=== PATIENT | female | born 1980 | race Caucasian/White ===

== ENCOUNTER 2019-08-01 15:58 | Emergency (ER) | payer OTHER ==
[~2019-08-01] VITALS: Ht 175.3 cm; Wt 90.7 kg
[~2019-08-01 15:58] MED LIST: ESCI20 PO; LEVSOD125 PO; OXYC15ER PO
[2019-08-01] MEDS ORDERED: NARCAN4 MG (16:12)
== END 2019-08-01 18:06 | disposition home or self-care (01) ==
LOC: ER 15:58
DX: T40.1X1A Poisoning by heroin, accidental (unintentional), initial encounter (principal); Z88.1 Allergy status to other antibiotic agents; Z79.899 Other long term (current) drug therapy; F17.200 Nicotine dependence, unspecified, uncomplicated
CPT/HCPCS: 99284

== ENCOUNTER 2019-12-20 06:32 | Emergency (ER) | payer OTHER ==
[~2019-12-20] VITALS: Ht 175.3 cm; Wt 97.5 kg
[~2019-12-20 06:32] MED LIST changes: +Bactrim Ds Tab1 EACH PO; +NALOXONE HC1 MG/1 ML IM; +NARCAN4 MG
[2019-12-20 06:53] LABS: Source, Urine Clean Catch
[2019-12-20 06:56] LABS: Bilirubin, Urine Neg (Neg); Blood, Urine 5+ (Neg); Glucose Qualitative, Urine Neg (Neg); Ketones, Urine Neg (Neg); Leukocyte Esterase, Urine 3+ (Neg); Nitrite, Urine Neg (Neg); Protein, Urine 2+ (Neg); Urobilinogen, Urine NORM (Normal)
[2019-12-20 07:03] LABS: Appearance, Urine Hazy (Clear); Color, Urine Yellow (P-Yellow)
[2019-12-20 07:05] LABS: White Blood Cells, Urine TNTC /hpf (0-5)
[2019-12-20 07:06] LABS: Bacteria Many /hpf; Squamous Epithelial Cells Few /hpf (Few); Transitional Epithelial Cells Few /hpf (0-Rare)
[2019-12-20] MEDS ORDERED: Pyridium200 MG PO (07:18)
[2019-12-20] MEDS ORDERED: CEFD300 PO (07:18)
[2019-12-20] MEDS ORDERED: ONDA4ODT SL (07:18)
== END 2019-12-20 08:02 | disposition home or self-care (01) ==
LOC: ER 06:32
PROVIDERS: Emergency Medicine
DX: N39.0 Urinary tract infection, site not specified (principal); R31.9 Hematuria, unspecified; F17.210 Nicotine dependence, cigarettes, uncomplicated; Z88.1 Allergy status to other antibiotic agents
CPT/HCPCS: 81001; 81025; 87077; 87086; 87186; 99283

== ENCOUNTER 2020-05-11 20:09 | Emergency (ER) | payer OTHER ==
[~2020-05-11] VITALS: Ht 177.8 cm; Wt 95.2 kg
[~2020-05-11 20:09] MED LIST changes: +CEFD300 PO; +ONDA4ODT SL; +Pyridium200 MG PO
[2020-05-11 20:49] LABS: BASOPHILS ABSOLUTE AUTO 0.05 K/mm3 (0.00-0.23); BASOPHILS PERCENT AUTO 1 % (0-2); EOSINOPHILS ABSOLUTE AUTO 0.13 K/mm3 (0.00-0.68); EOSINOPHILS PERCENT AUTO 1 % (0-6); Hematocrit 38.2 % (33.0-51.0); Hemoglobin 12.6 g/dL (11.5-16.0); IMMATURE GRAN ABSOLUTE AUTO 0.02 K/mm3 (0.00-0.10); IMMATURE GRAN PERCENT AUTO 0 % (0-1); LYMPHOCYTES PERCENT AUTO 31 % (21-46); MONOCYTES ABSOLUTE AUTO 0.72 K/mm3 (0.16-1.47); MONOCYTES PERCENT AUTO 8 % (4-13); Mean Corpuscular Volume 88 fL (80-100); Mean Platelet Volume 10.2 fL (9.1-12.4); NEUTROPHILS ABSOLUTE AUTO 5.61 K/mm3 (1.96-9.15); NEUTROPHILS PERCENT AUTO 60 % (41-73); Platelet Count 277 K/mm3 (150-400); RDW Coefficient Variation 13.1 % (11.7-14.2); Red Blood Cell Count 4.35 M/mm3 (3.80-5.20); White Blood Cell Count 9.43 K/mm3 (4.00-11.30)
[2020-05-11 21:34] LABS: Alanine Aminotransfer (ALT/SGP 109 U/L (12-78); Alk Phos 70 U/L (50-136); Anion Gap 8 mmol/L (6-16); Aspartate Aminotrans (AST/SGOT 55 U/L (12-37); Bilirubin, Total 0.5 mg/dL (0.1-1.0); Blood Urea Nitrogen 11 mg/dL (8-24); Bun/Creatinine Ratio 16.2 (12.0-20.0); CO2, Blood 26 mmol/L (21-32); Calcium, Blood 9.7 mg/dL (8.5-10.1); Chloride, Blood 106 mmol/L (98-108); Creatinine, Blood 0.68 mg/dL (0.40-1.00); Glomerular Filtration Rate >60 (60-); Glucose, Blood 104 mg/dL (70-99); Sodium, Blood 140 mmol/L (136-145)
[2020-05-11] MEDS ORDERED: HYDR1TAB94 PO (22:17)
== END 2020-05-11 22:54 | disposition home or self-care (01) ==
LOC: ER 20:09
PROVIDERS: Physician Assistant
DX: S00.03XA Contusion of scalp, initial encounter (principal); S50.01XA Contusion of right elbow, initial encounter; F17.290 Nicotine dependence, other tobacco product, uncomplicated; Z88.1 Allergy status to other antibiotic agents; Z79.899 Other long term (current) drug therapy; W13.2XXA Fall from, out of or through roof, initial encounter; Y92.009 Unspecified place in unspecified non-institutional (private) residence as the place of occurrence of the external cause
CPT/HCPCS: 36415; 70450; 72125; 73080; 80053; 85025; 96374; 96375; 99284-25; A9270-GY; J2270; J2405

== ENCOUNTER 2021-02-18 17:32 | Emergency (ER) | payer OTHER ==
[~2021-02-18] VITALS: Ht 177.8 cm; Wt 90.7 kg
[~2021-02-18 17:32] MED LIST changes: +HYDR1TAB94 PO
== END 2021-02-18 20:15 | disposition home or self-care (01) ==
LOC: ER 17:32
DX: T40.1X1A Poisoning by heroin, accidental (unintentional), initial encounter (principal); R40.4 Transient alteration of awareness; F17.210 Nicotine dependence, cigarettes, uncomplicated; Z88.1 Allergy status to other antibiotic agents
CPT/HCPCS: 99285

== ENCOUNTER 2021-05-13 18:34 | Emergency (ER) | payer OTHER ==
[~2021-05-13] VITALS: Ht 175.3 cm; Wt 90.7 kg
[2021-05-13] MEDS ORDERED: CEPH500 PO (21:19)
== END 2021-05-13 21:31 | disposition home or self-care (01) ==
LOC: ER 18:34
DX: L02.413 Cutaneous abscess of right upper limb (principal); L03.113 Cellulitis of right upper limb; F17.210 Nicotine dependence, cigarettes, uncomplicated
CPT/HCPCS: 10061; 96365; 96375; 99282-25; A9270

== ENCOUNTER → 2022-07-21 | Outpatient (CLI) | payer OTHER ==
[~2022-07-21] MED LIST changes: +CEPH500 PO
== END | disposition home or self-care (01) ==
LOC: LAB SHORT 18:05 → LAB 18:05
DX: N39.0 Urinary tract infection, site not specified (principal)
CPT/HCPCS: 87077; 87086; 87186

== ENCOUNTER → 2022-11-18 | Outpatient (CLI) | payer OTHER ==
[2022-11-18 16:06] LABS: Source, Urine Clean Catch
[2022-11-18 19:08] LABS: Amorphous Heavy (0-Heavy); Bacteria Many /hpf; Mucus Light (0-Heavy); Squamous Epithelial Cells Mod /hpf (Few)
== END | disposition home or self-care (01) ==
LOC: LAB SHORT 16:03
PROVIDERS: Advanced Practice Midwife
DX: O09.892 Supervision of other high risk pregnancies, second trimester (principal)
CPT/HCPCS: 81015

== ENCOUNTER → 2023-01-23 | Outpatient (CLI) | payer OTHER ==
[~2023-01-23] MED LIST changes: +BUPRENORPHINE HC2 MG PO; +PRENATAL TABLE1 EAC2 PO
[2023-01-23 16:55] LABS: Source, Urine Voided
[2023-01-23 18:02] LABS: BASOPHILS ABSOLUTE AUTO 0.05 K/mm3 (0.00-0.23); BASOPHILS PERCENT AUTO 1 % (0-2); EOSINOPHILS ABSOLUTE AUTO 0.11 K/mm3 (0.00-0.68); EOSINOPHILS PERCENT AUTO 1 % (0-6); Hemoglobin 11.9 g/dL (11.5-16.0); IMMATURE GRAN ABSOLUTE AUTO 0.02 K/mm3 (0.00-0.10); IMMATURE GRAN PERCENT AUTO 0 % (0-1); LYMPHOCYTES ABSOLUTE AUTO 1.99 K/mm3 (0.84-5.20); LYMPHOCYTES PERCENT AUTO 24 % (21-46); MONOCYTES ABSOLUTE AUTO 0.74 K/mm3 (0.16-1.47); MONOCYTES PERCENT AUTO 9 % (4-13); Mean Corpuscular HGB 28.9 pg (26.0-34.0); Mean Corpuscular HGB Conc 33.1 g/dL (31.5-36.5); Mean Corpuscular Volume 87 fL (80-100); NEUTROPHILS ABSOLUTE AUTO 5.55 K/mm3 (1.96-9.15); NEUTROPHILS PERCENT AUTO 66 % (41-73); Platelet Count 191 K/mm3 (150-400); RDW Coefficient Variation 13.2 % (11.7-14.2); RDW Standard Deviation 41.3 fL (35.1-46.3); Red Blood Cell Count 4.12 M/mm3 (3.80-5.20); White Blood Cell Count 8.46 K/mm3 (4.00-11.30)
[2023-01-23 18:03] LABS: Mean Platelet Volume 13.6 fL (9.1-12.4)
[2023-01-23 18:48] LABS: Bacteria Few /hpf; Red Blood Cells, Urine 0-2 /hpf (0-2); Squamous Epithelial Cells Few /hpf (Few); White Blood Cells, Urine 0-2 /hpf (0-5)
[2023-01-23 18:49] LABS: Amorphous Light (0-Heavy)
[2023-01-24 10:22] LABS: G. vaginalis (DNA Probe) Positive (NEGATIVE); T. vaginalis (DNA Probe) Negative (NEGATIVE)
[2023-01-24 10:23] LABS: Candida species (DNA Probe) Negative (NEGATIVE)
[2023-01-25 01:07] LABS: CHLAMYDIA TRACHOMATIS, NAA Negative (Negative)
[2023-01-25 07:08] LABS: HBSAG SCREEN Negative (Negative); HCV ANTIBODY Reactive (Non Reactive); HIV AB/P24 AG SCREEN Non Reactive (Non Reactive)
[2023-01-25 09:08] LABS: HEPATITIS C QUANTITATION HCV Not Detected IU/mL (.)
[2023-01-26 15:09] LABS: HPV 16 Negative (Negative); HPV 18 Negative (Negative); HPV OTHER HR TYPES Negative (Negative)
== END ==
LOC: LAB 15:34 → LAB SHORT 15:34
PROVIDERS: Obstetrics & Gynecology
DX: Z01.419 Encounter for gynecological examination (general) (routine) without abnormal findings (principal); Z11.3 Encounter for screening for infections with a predominantly sexual mode of transmission; O09.893 Supervision of other high risk pregnancies, third trimester; N89.8 Other specified noninflammatory disorders of vagina; Z3A.00 Weeks of gestation of pregnancy not specified
CPT/HCPCS: 81015; 84443; 85025; 86592; 86762; 86803; 86850; 86900; 86901; 87081; 87086; 87150; 87340; 87389; 87480; 87491; 87510; 87522; 87591; 87624; 87660; G0145

== ENCOUNTER 2023-02-04 14:11 | Inpatient (IN) | payer OTHER ==
[2023-02-04] VITALS (18 sets, daily range): BP systolic 127–181; BP diastolic 61–108
[~2023-02-04] VITALS: Ht 175.3 cm; Wt 100.0 kg
[~2023-02-04 14:11] MED LIST changes: -BUPRENORPHINE HC2 MG PO; -PRENATAL TABLE1 EAC2 PO
[2023-02-04] MEDS ORDERED: BUPRENORPHINE HC2 MG PO (14:50)
[2023-02-04] MEDS ORDERED: PRENATAL TABLE1 EAC2 PO (14:51)
[2023-02-04 15:11] LABS: BASOPHILS ABSOLUTE AUTO 0.03 K/mm3 (0.00-0.23); BASOPHILS PERCENT AUTO 1 % (0-2); EOSINOPHILS ABSOLUTE AUTO 0.09 K/mm3 (0.00-0.68); EOSINOPHILS PERCENT AUTO 1 % (0-6); Hematocrit 31.4 % (33.0-51.0); Hemoglobin 10.6 g/dL (11.5-16.0); IMMATURE GRAN ABSOLUTE AUTO 0.01 K/mm3 (0.00-0.10); IMMATURE GRAN PERCENT AUTO 0 % (0-1); LYMPHOCYTES ABSOLUTE AUTO 1.71 K/mm3 (0.84-5.20); LYMPHOCYTES PERCENT AUTO 27 % (21-46); MONOCYTES PERCENT AUTO 8 % (4-13); Mean Corpuscular HGB 28.7 pg (26.0-34.0); Mean Corpuscular HGB Conc 33.8 g/dL (31.5-36.5); Mean Corpuscular Volume 85 fL (80-100); Mean Platelet Volume 12.8 fL (9.1-12.4); NEUTROPHILS ABSOLUTE AUTO 4.01 K/mm3 (1.96-9.15); NEUTROPHILS PERCENT AUTO 63 % (41-73); Platelet Count 161 K/mm3 (150-400); RDW Coefficient Variation 13.5 % (11.7-14.2); RDW Standard Deviation 41.2 fL (35.1-46.3); Red Blood Cell Count 3.69 M/mm3 (3.80-5.20); White Blood Cell Count 6.35 K/mm3 (4.00-11.30)
[2023-02-04 16:02] LABS: Albumin, Blood 2.5 g/dL (3.4-5.0); Albumin/Globulin Ratio 0.6 (0.8-1.8); Bilirubin, Total 0.1 mg/dL (0.1-1.0); Bun/Creatinine Ratio 17.4 (12.0-20.0); Calcium, Blood 9.3 mg/dL (8.5-10.1); Creatinine, Blood 0.69 mg/dL (0.40-1.00); Globulin, Blood 4.3 g/dL (2.2-4.0); Potassium, Blood 3.7 mmol/L (3.5-5.5); Total Protein, Blood 6.8 g/dL (6.4-8.2)
--- NOTE | 2023-02-04 17:25 | NUR ---
URINE TOXICOLOGY SPECIMENS COLLECTED AND WALKED UP TO LAB. AWAITING RESULTS.
[2023-02-04 18:50] LABS: U Amphetamine Screen Not Detected; U Barbituate Screen Not Detected; U Benzodiazapine Screen Not Detected; U Buprenorphine Screen Not Detected; U Cannabinoids Screen Not Detected; U Cocaine Screen Not Detected; U Methadone Screen Not Detected; U Methamphetamine Screen DETECTED; U Opiates Screen Not Detected; U Oxycodone Screen Not Detected; U Phencyclidine Screen Not Detected; U Propoxyphene Screen Not Detected
[2023-02-04 18:54] LABS: Creatinine, Urine Random 59.9 mg/dL (27.00-270.00); Protein, Urine Random 22.6 mg/dL (0.0-11.9); Protein/Creat Ratio, Ur Random 0.4
--- NOTE | 2023-02-04 19:59 | NUR ---
Proovided & Nurse in room. No needs at this time.
[2023-02-04 21:27] LABS: Creatinine, Blood 0.7 mg/dL (0.40-1.00); International Normalized Ratio 0.87; Prothrombin Time Results 9.2 Sec (9.7-11.5)
[2023-02-05] VITALS (58 sets, daily range): BP systolic 112–229; BP diastolic 62–121
[2023-02-05 09:32] LABS: BASOPHILS ABSOLUTE AUTO 0.05 K/mm3 (0.00-0.23); BASOPHILS PERCENT AUTO 1 % (0-2); EOSINOPHILS ABSOLUTE AUTO 0.08 K/mm3 (0.00-0.68); EOSINOPHILS PERCENT AUTO 1 % (0-6); Hematocrit 35.8 % (33.0-51.0); Hemoglobin 11.9 g/dL (11.5-16.0); IMMATURE GRAN ABSOLUTE AUTO 0.04 K/mm3 (0.00-0.10); IMMATURE GRAN PERCENT AUTO 0 % (0-1); LYMPHOCYTES ABSOLUTE AUTO 1.61 K/mm3 (0.84-5.20); LYMPHOCYTES PERCENT AUTO 17 % (21-46); MONOCYTES ABSOLUTE AUTO 0.62 K/mm3 (0.16-1.47); MONOCYTES PERCENT AUTO 7 % (4-13); Mean Corpuscular HGB 28.5 pg (26.0-34.0); Mean Corpuscular HGB Conc 33.2 g/dL (31.5-36.5); Mean Corpuscular Volume 86 fL (80-100); Mean Platelet Volume 12.7 fL (9.1-12.4); NEUTROPHILS PERCENT AUTO 75 % (41-73); Platelet Count 177 K/mm3 (150-400); RDW Coefficient Variation 14.1 % (11.7-14.2); RDW Standard Deviation 42.8 fL (35.1-46.3); Red Blood Cell Count 4.17 M/mm3 (3.80-5.20)
[2023-02-05 10:08] LABS: Albumin, Blood 2.6 g/dL (3.4-5.0); Albumin/Globulin Ratio 0.6 (0.8-1.8); Bilirubin, Total 0.2 mg/dL (0.1-1.0); Bun/Creatinine Ratio 8.8 (12.0-20.0); Calcium, Blood 7.9 mg/dL (8.5-10.1); Creatinine, Blood 0.8 mg/dL (0.40-1.00); Globulin, Blood 4.5 g/dL (2.2-4.0); Potassium, Blood 3.9 mmol/L (3.5-5.5); Total Protein, Blood 7.1 g/dL (6.4-8.2)
--- NOTE | 2023-02-05 11:40 | NUR ---
02/05/23 1140 Adrianna Carreno 1130 DELIVERY VIABLE MALE WEIGHT 2825GM, 6# 4 OZ, LENGTH 18 INCHES, HEAD 14 INCHES, CHEST 14 INCHES, UMBICAL CORD SEGMENT COLLECTED FOR DRUG SCREEN, UMBILICAL CORD BLOOD COLLECTED GIVEN TO GISELLE RN
--- NOTE | 2023-02-05 13:03 | NUR ---
DR. KHALIL AT BEDSIDE TO UPDATE PT, THEN OUT OF ROOM
--- NOTE | 2023-02-05 19:04 | NUR ---
REPT TO Jameson ORTEGA RN
--- NOTE | 2023-02-05 20:45 | NUR ---
DR GANDHI NOTIFIED OF 2 SEVERE RANGE BPS AND CURRENT PULSE AFTER ADMINISTERING 60 MG XL NIFEDIPINE AT 2009, NEW ORDERS FOR 40 MG IV LABETALOL NOW. NO NEW ORDERS FOR ANY ORAL BP MEDS AT THIS TIME.
[2023-02-06] VITALS (25 sets, daily range): BP systolic 115–181; BP diastolic 56–83
[2023-02-06 06:34] LABS: Albumin, Blood 2.2 g/dL (3.4-5.0); Albumin/Globulin Ratio 0.5 (0.8-1.8); Bilirubin, Total 0.2 mg/dL (0.1-1.0); Bun/Creatinine Ratio 13.3 (12.0-20.0); Calcium, Blood 7.9 mg/dL (8.5-10.1); Creatinine, Blood 0.75 mg/dL (0.40-1.00); Globulin, Blood 4.3 g/dL (2.2-4.0); Potassium, Blood 5.7 mmol/L (3.5-5.5); Total Protein, Blood 6.5 g/dL (6.4-8.2)
[2023-02-06 06:49] LABS: BASOPHILS ABSOLUTE AUTO 0.02 K/mm3 (0.00-0.23); BASOPHILS PERCENT AUTO 0 % (0-2); EOSINOPHILS ABSOLUTE AUTO 0.01 K/mm3 (0.00-0.68); EOSINOPHILS PERCENT AUTO 0 % (0-6); Hematocrit 32.6 % (33.0-51.0); Hemoglobin 11.1 g/dL (11.5-16.0); IMMATURE GRAN ABSOLUTE AUTO 0.07 K/mm3 (0.00-0.10); IMMATURE GRAN PERCENT AUTO 0 % (0-1); LYMPHOCYTES ABSOLUTE AUTO 2.07 K/mm3 (0.84-5.20); LYMPHOCYTES PERCENT AUTO 13 % (21-46); MONOCYTES ABSOLUTE AUTO 0.92 K/mm3 (0.16-1.47); MONOCYTES PERCENT AUTO 6 % (4-13); Mean Corpuscular HGB 29.1 pg (26.0-34.0); Mean Corpuscular Volume 86 fL (80-100); NEUTROPHILS PERCENT AUTO 80 % (41-73); Platelet Count 128 K/mm3 (150-400); RDW Coefficient Variation 14.3 % (11.7-14.2); RDW Standard Deviation 43.3 fL (35.1-46.3); Red Blood Cell Count 3.81 M/mm3 (3.80-5.20); White Blood Cell Count 15.69 K/mm3 (4.00-11.30)
[2023-02-06 06:57] LABS: Mean Platelet Volume 13.4 fL (9.1-12.4)
--- NOTE | 2023-02-06 09:30 | NUR ---
CPS NOTE ARIS CEBALLOS AND FORREST GARCIA HERE FOR INITIAL CONTACT INTERVIEW. BRIEFLY SPOKE WITH PT AND SO. RECEIVED REPORT FROM NURSERY RN AND PERMIT COORDINATOR REGARDING NB PLAN OF CARE. WILL RETURN THURSDAY AM WITH PLAN FOR DISCHARGE. FBP STAFF TO NOTIFY CPS ALLIGATOR SHEAR OPERATOR STAFF OVER WEEKEND WITH NEEDS OR IF PLAN FOR DISCHARGE FOR PT OR NB CHANGES.
--- NOTE | 2023-02-06 12:59 | NUR ---
IV saline locked, walker catheter d/c'd. Pt educated not to get up to BR w/o assistance and to call when she feels she is ready to get up to shower and void.
[2023-02-07] VITALS (7 sets, daily range): BP systolic 125–137; BP diastolic 60–74
[2023-02-08 03:04] VITALS: BP 129/69
[2023-02-08 08:01] VITALS: BP 136/85
[2023-02-08] MEDS ORDERED: LABE200 PO (10:32)
[2023-02-08] MEDS ORDERED: MIRALAX17 GM PO (10:32)
[2023-02-08] MEDS ORDERED: IBUP800 PO (10:33)
[2023-02-08] MEDS ORDERED: NIFE60ER PO (10:33)
[2023-02-08] MEDS ORDERED: MASOPHEN500 M3 PO (10:33)
[2023-02-08] MEDS ORDERED: OXAYDO5 M1 PO (10:34)
[2023-02-08 10:55] VITALS: BP 135/79
--- NOTE | 2023-02-08 12:03 | NUR ---
patient and significant other given written and verbal dc instructions at length. Lupe states she has a pp appointment with Dr Flores on Thursday. She was also scheduled for a ppfu here at [facility] on thursday at 10 am. pt going home on labetalol 200 mg tid and 60 mg xl nifedipine bid. stressed importance of taking these medications and staying compliant and pih symptoms or eclampsia warnings and when to go to ER if needed. pt verbalizes understanding. scripts are currently being filled and Jose mother went to go pick them up for her. she will dc to boarder status when her meds are back. powerglids removed x 2, catheteers intact and pressure applied. c section instructions reviewed and recovery discussed. all questions answered and patient receptive.
== END 2023-02-08 14:30 | disposition home or self-care (01) | DRG 784 ==
LOC: OBS 14:11 → BC 14:21 → OBS 14:23 → BC 14:24
PROVIDERS: Obstetrics & Gynecology; ADMIT Obstetrics & Gynecology
PROC: 10D00Z1 Extraction of Products of Conception, Low, Open Approach (ICD-10-PCS; principal; 2023-02-05 10:30)
PROC: 0UB70ZZ Excision of Bilateral Fallopian Tubes, Open Approach (ICD-10-PCS; 2023-02-05 10:30)
DX: O11.4 Pre-existing hypertension with pre-eclampsia, complicating childbirth (principal); O98.32 Other infections with a predominantly sexual mode of transmission complicating childbirth; O98.42 Viral hepatitis complicating childbirth; O99.324 Drug use complicating childbirth; O99.214 Obesity complicating childbirth; Z3A.37 37 weeks gestation of pregnancy; Z37.0 Single live birth; O99.810 Abnormal glucose complicating pregnancy; F15.10 Other stimulant abuse, uncomplicated; B19.20 Unspecified viral hepatitis C without hepatic coma; A60.04 Herpesviral vulvovaginitis; O99.284 Endocrine, nutritional and metabolic diseases complicating childbirth; E87.5 Hyperkalemia; E03.9 Hypothyroidism, unspecified; F11.10 Opioid abuse, uncomplicated; O76 Abnormality in fetal heart rate and rhythm complicating labor and delivery; Z30.2 Encounter for sterilization; Z87.891 Personal history of nicotine dependence; Z88.1 Allergy status to other antibiotic agents
CPT/HCPCS: 36415; 80053; 82565; 82570; 82947; 83615; 84156; 85025; 85384; 85610; 85730; 86850; 86900; 86901; 86923; 88302; A9270; C1751; J0360; J0456; J0690; J1100; J1885; J2371; J2405; J2590; J3010; J3475; J7050; J7120